=== PATIENT | male | born 1980 | race Caucasian/White ===

== ENCOUNTER 2017-04-18 13:48 | Inpatient (IN) | payer BC ==
[~2017-04-18] VITALS: Ht 162.6 cm; Wt 84.8 kg
[2017-04-18 15:35] LABS: BASOPHIL % 0.5 % (0-2); PLATELET COUNT 237 x10^3mcL (130-400); RED CELL DISTRIBUTION WIDTH 12.9 % (11.5-14.5)
[2017-04-18 15:42] LABS: CALCIUM 7.7 mg/dL (8.5-10.1); CARBON DIOXIDE 27.6 mmol/L (21-32); CHLORIDE SERUM 108 mmol/L (98-107); CREATININE SERUM 0.9 mg/dL (0.7-1.3); GFR1 > 60 mL/min; GLUCOSE SERUM 117 mg/dL (74-106); POTASSIUM SERUM 3.4 mmol/L (3.5-5.1); SODIUM SERUM 140 mmol/L (136-145)
[2017-04-18 15:46] LABS: ALKALINE PHOSPHATASE 77 U/L (46-116); ALT/SGPT 36 U/L (16-63); AST/SGOT 23 U/L (15-37); BILIRUBIN TOTAL 0.4 mg/dL (0.20-1.00); LIPASE 242 IU/L (73-393); TOTAL PROTEIN, SERUM 6.7 g/dL (6.4-8.2)
[2017-04-18 15:47] LABS: ALBUMIN 3.3 g/dL (3.4-5.0)
[2017-04-18 16:15] LABS: microscopic required? NO
[2017-04-18 16:44] LABS: UA SPECIFIC GRAVITY >=1.030 (1.005-1.035); urine erythrocyte NEGATIVE (NEGATIVE)
[2017-04-18 18:20] LABS: T3 TOTAL 1.03 ng/mL
[2017-04-18 18:21] LABS: AMPHETAMINE QUAL UR NONE DETECTED (NEG <=1000)
[2017-04-18 18:21] LABS: FREE THYROXINE INDEX 2.2 ug/dL (1.4-4.5); T4(THYROXINE) 6.6 ug/dL (4.7-13.3)
[2017-04-18 18:38] LABS: MAGNESIUM 2.2 mg/dL (1.8-2.4); PHOSPHOROUS 3.1 mg/dL (2.5-4.9)
[2017-04-18 18:40] LABS: CHOLESTEROL/HDL RATIO 5.2
[2017-04-18 19:00] VITALS: BP 127/65
[2017-04-18 20:53] VITALS: BP 113/65
[2017-04-19 05:26] VITALS: BP 103/54
[2017-04-19 09:32] VITALS: BP 105/52
[2017-04-19 15:54] VITALS: BP 102/42
[2017-04-19 17:44] VITALS: BP 98/48
[2017-04-19 19:48] LABS: BASOPHIL % 0.5 % (0-2); PLATELET COUNT 253 x10^3mcL (130-400); RED CELL DISTRIBUTION WIDTH 12.7 % (11.5-14.5)
[2017-04-19 19:52] LABS: CALCIUM 8.8 mg/dL (8.5-10.1); CARBON DIOXIDE 30.3 mmol/L (21-32); CHLORIDE SERUM 105 mmol/L (98-107); CREATININE SERUM 1.2 mg/dL (0.7-1.3); GFR1 > 60 mL/min; GLUCOSE SERUM 122 mg/dL (74-106); POTASSIUM SERUM 3.4 mmol/L (3.5-5.1); SODIUM SERUM 139 mmol/L (136-145)
[2017-04-19 21:05] VITALS: BP 112/58
[2017-04-20 05:19] VITALS: BP 104/60
[2017-04-20 06:52] LABS: BASOPHIL % 0.4 % (0-2); PLATELET COUNT 237 x10^3mcL (130-400); RED CELL DISTRIBUTION WIDTH 12.7 % (11.5-14.5)
[2017-04-20 07:09] LABS: CALCIUM 8.6 mg/dL (8.5-10.1); CARBON DIOXIDE 29.2 mmol/L (21-32); CHLORIDE SERUM 107 mmol/L (98-107); GFR1 > 60 mL/min; GLUCOSE SERUM 105 mg/dL (74-106); MAGNESIUM 2.2 mg/dL (1.8-2.4); PHOSPHOROUS 4.4 mg/dL (2.5-4.9); POTASSIUM SERUM 4.4 mmol/L (3.5-5.1); SODIUM SERUM 141 mmol/L (136-145)
[2017-04-20 09:03] VITALS: BP 99/46
[2017-04-20 12:01] VITALS: BP 106/57
[2017-04-20 17:02] VITALS: BP 116/63
[2017-04-20 20:38] VITALS: BP 97/47
[2017-04-21 05:26] VITALS: BP 90/47
[2017-04-21 06:38] LABS: CALCIUM 8.5 mg/dL (8.5-10.1); CARBON DIOXIDE 28.5 mmol/L (21-32); CHLORIDE SERUM 102 mmol/L (98-107); CREATININE SERUM 1.1 mg/dL (0.7-1.3); GFR1 > 60 mL/min; GLUCOSE SERUM 120 mg/dL (74-106); MAGNESIUM 1.9 mg/dL (1.8-2.4); PHOSPHOROUS 4.3 mg/dL (2.5-4.9); POTASSIUM SERUM 4.4 mmol/L (3.5-5.1); SODIUM SERUM 134 mmol/L (136-145)
[2017-04-21 07:42] LABS: BASOPHIL % 0.3 % (0-2); PLATELET COUNT 277 x10^3mcL (130-400); RED CELL DISTRIBUTION WIDTH 12.6 % (11.5-14.5)
[2017-04-21 09:55] VITALS: BP 91/40
[2017-04-21 10:58] VITALS: BP 106/43
[2017-04-21 13:15] VITALS: BP 90/44
[2017-04-21 16:52] VITALS: BP 175/71
[2017-04-21 21:58] VITALS: BP 126/77
[2017-04-22 05:55] VITALS: BP 114/60
[2017-04-22 07:55] VITALS: BP 113/53
[2017-04-22 10:47] VITALS: BP 101/50
[2017-04-22] MEDS ORDERED: COL100 PO (11:59)
[2017-04-22] MEDS ORDERED: ONDANSETRON4 M3 PO (12:00)
[2017-04-22] MEDS ORDERED: TYL325 PO (12:01)
[2017-04-22] MEDS ORDERED: APAP/HYDROCODON1 T13 PO (12:03)
[2017-04-22 12:20] VITALS: BP 101/50
[2017-04-22 12:22] VITALS: BP 101/50
== END 2017-04-22 14:57 | disposition home or self-care (01) | DRG 356 ==
LOC: ED 13:48 → MU 17:26 → DU 17:26 → MU 04-19 10:17
PROVIDERS: Emergency Medicine; Family Medicine; Surgery; ADMIT Family Medicine
PROC: 0DBU0ZZ Excision of Omentum, Open Approach (ICD-10-PCS; principal; 2017-04-20 13:00)
DX: K55.049 Acute infarction of large intestine, extent unspecified (principal); N17.0 Acute kidney failure with tubular necrosis; E44.1 Mild protein-calorie malnutrition; E11.9 Type 2 diabetes mellitus without complications; E87.6 Hypokalemia; K76.0 Fatty (change of) liver, not elsewhere classified; E83.51 Hypocalcemia; E87.8 Other disorders of electrolyte and fluid balance, not elsewhere classified; Z68.31 Body mass index [BMI] 31.0-31.9, adult
CPT/HCPCS: 82962; 83880; 84439; 94150; J0330; J0690; J1170; J1885; J2175; J2250; J2270; J2405; J3010; J3490; J7030; Q9967